=== PATIENT | male | born 1950 | race Caucasian/White ===

== ENCOUNTER → 2020-09-30 12:04 | Outpatient (CLI) | payer MEDICARE, BC, SELFPAY ==
--- NOTE | 2020-09-30 12:09 | DI.MRI.S_ITS ---
PROCEDURE: MR LUMBAR SPINE WO CON INDICATIONS: Radiculopathy, lumbar region TECHNIQUE: Noncontrast sagittal T1 spin echo and T2 fast echo, sagittal STIR, axial T1 and T2 fast spin echo through the lumbar spine. In cases with scoliosis, additional coronal T2 fast spin echo may be performed. COMPARISON: None. FINDINGS: Image quality: This examination is limited by involuntary motion artifact. Alignment and Curvature: There is normal bony alignment. Bone Marrow: Marrow is of normal overall signal. No acute vertebral body compression fractures. Spinal Cord: Conus medullaris terminates at the L1 level. Visualized cord demonstrates normal signal and size. Paraspinous Soft Tissues: No paravertebral masses. T12-L1: Normal appearance. L1-L2: No significant abnormality is seen. L2-L3: The disc height and disc signal are relatively well preserved. Mild disc bulge is seen, with a mild central disc protrusion. Moderate facet joint hypertrophy is seen. Minimal central canal narrowing is seen. L3-L4: Moderate loss of disc height is seen. Loss of disc signal is seen. Moderate disc bulge is seen, with a central disc protrusion. There is a focal annular fissure seen posteriorly. There is moderate right-sided and moderate to severe left-sided neural foraminal narrowing seen. There is a degree of compression seen upon the exiting left L3 nerve root. Mild central canal narrowing is seen. L4-L5: There is at least moderate loss of disc height and disc signal seen. Moderate disc bulge is seen, which is eccentric to the right. Reactive marrow endplate changes are seen, which demonstrate mixed T1 weighted and T2-weighted signal, and are attributed to a combination of edema and fatty metaplasia (Modic type I and Modic type II changes). Moderate facet joint hypertrophy is seen. Associated hypertrophy of the ligamentum flavum can be seen. There is moderate to severe bilateral neural foraminal narrowing seen, right worse than left. There is a degree of compression seen upon the exiting nerve roots. Moderate central canal narrowing is seen. L5-S1: Moderate loss of disc height is seen. Loss of disc signal is seen. Moderate generalized disc bulge is seen. Moderate facet joint hypertrophy is seen. There is moderate to severe bilateral neural foraminal narrowing seen. There is a degree of compression seen upon the exiting nerve roots. Minimal central canal narrowing is seen. IMPRESSION: Multiple levels of lumbar spine degenerative change are seen, which are worst inferiorly. Dictated by: Emory Oneill M.D. on 09/30/2020 at 13:46 Approved by: Emory Oneill M.D. on 09/30/2020 at 13:50
== END ==
PROVIDERS: PCP Family Medicine; Referring Provider Family Medicine; Visit Provider Family Medicine
DX: M54.16 Radiculopathy, lumbar region (principal); M51.37 Other intervertebral disc degeneration, lumbosacral region; M48.07 Spinal stenosis, lumbosacral region
CPT/HCPCS: 72148

== ENCOUNTER 2021-07-28 10:30 | Day surgery (SDC) | payer MEDICARE, BC, SELFPAY ==
--- NOTE | 2021-07-28 | PATH_ITS ---
[facility] Accession Number: [id number] . 01 Material submitted: . colon - ASCENDING COLON . 02 Diagnosis: Ascending Colon: Tubular adenoma. COUNTS INCLUDE 234 BEDS AT THE [facility] 07/30/2021 1557 Local . 02 Electronically signed: . Hillary Hinton MD, Pathologist NPI- [id number] . 01 Gross description: . ASCENDING COLON: Received in formalin is 1 fragment(s) of chen, soft tissue measuring 0.3 x 0.2 x 0.2 cm submitted entirely in 1 cassette(s) /DANIEL 07/30/2021 0053 Local . 02 Pathologist provided ICD-10: K63.5, Z86.010, Z01.812, Z20.822 . 02 CPT . 874786 Specimen Comment: A courtesy copy of this report has been sent to [phone] Performed at: 01 [facility] [address] [facility], [place], [place] [id number] MD Santiago Medrano MD Phone: [phone] Performed at: 02 [facility] [address] [place], [place] [id number] MD Susan Barboza MD Phone: [phone]
[2021-07-28 10:08] LABS: COVID19 -Nasal RAPID Negative (Negative)
[2021-07-28 10:44] VITALS: BP 133/66; PULSE 64; RESP 16; TEMP 36.4; O2SAT 100; BMI 23.7
[2021-07-28 11:07] VITALS: BMI 23.7
[2021-07-28] MEDS: LACTATED RINGERS 1,000 ML 200 ML IV (11:11)
--- NOTE | 2021-07-28 11:53 | PM.HP.1 ---
History of Present Illness History of Present Illness Date Patient Seen: 07/28/21 Time Patient Seen: 11:53 Chief complaint: DX COLONOSCOPY Narrative: The patient presents for colorectal screening. He had a previous colonoscopy 5 years ago which was significant for benign polyps. No personal or family history of colon cancer. On further history denies any recent gastrointestinal symptoms. No nausea, vomiting, abdominal pain, loss of appetite, unexplained weight loss, change in bowel habits, diarrhea, constipation, melena, hematochezia, or bright red blood per rectum. Patient History Family & Social History Social History: household members other Tobacco & Substance use: Smoking Status Never smoker alcohol intake frequency a few times a week Substance Use Type does not use Meds Home Medications and Allergies Home Medications Medication Instructions Recorded Confirmed Type sodium,potassium,mag sulfates 17.5 See Rx Instructions PO .COMPLEX 07/02/21 Rx gram-3.13 gram-1.6 gram oral soln #354 ml (Suprep Bowel Prep Kit) Allergies Allergy/AdvReac Type Severity Reaction Status Date / Time No Known Drug Allergies Allergy Verified 07/28/21 10:38 Exam Vital Signs (past 8 hours): - 07/28/21 10:44 Temperature 97.6 F Pulse Rate 64 Respiratory Rate 16 Blood Pressure 133/66 Pulse Oximetry 100 Oxygen Delivery Method Room Air Narrative Exam Narrative: GENERAL: Adult male in no apparent distress HEENT: No scleral icterus CV: Regular rate, no peripheral edema LUNGS: No increased work of breathing. Patient speaks in full sentences without oxygen support. ABDOMEN: Soft, non-tender, non-distended NEURO: Nonfocal, normal strength throughout, SKIN: Warm and dry Objective Labs Labs: Laboratory Results - last 24 hr 07/28/21 09:32 SARS-CoV-2 (PCR) Negative Assessment & Plan Assessment and plan (1) Screening for colon cancer: Status: Acute Assessment & Plan narrative: The patient requires colorectal screening and colonoscopy is recommended. Technical details were discussed. Risks, benefits, alternatives explained. Risks including but not limited to myocardial infarction, aspiration, bleeding, pain, missed lesion, incomplete examination, need for further radiographic studies, colonic perforation, and need for major abdominal surgery were discussed. All questions were answered to their satisfaction, and they are in agreement with this plan. Time Spent With Patient Critical Care time: I spent a total of [] minutes of critical care time on this patient's care today; this time is exclusive of procedural time.
[2021-07-28] MEDS: MIDAZOLAM 5 MG/5 ML VIAL IV (12:01)
[2021-07-28] MEDS: fentaNYL 250 MCG/5 ML INJ IV (12:01)
--- NOTE | 2021-07-28 12:33 | PM.OP.COLON ---
Operative Date/Time/Diagnoses Date of procedure: 07/28/21 Time of procedure: 12:33 Pre-op diagnosis: Personal history of colonic polyps Post-op diagnosis: same Procedure & Clinicians Study performed: Colonoscopy Same procedure as scheduled: Yes Indications: Personal history of colonic polyps Surgeon: Shahid Guzman Procedure Notes Procedure in detail: Medications: Conscious sedation using midazolam and fentanyl The history and physical was performed/updated and the patient is ASA class is 1. The procedure was discussed in detail with the patient. Potential risks complications including infection, bleeding, missed diagnosis, perforation, need for surgery, and were explained. Their questions were answered and informed consent was obtained. Patient was brought to the procedure room and placed standard monitoring equipment. The patient's vital signs were monitored continuously throughout the entire procedure. Prior to starting time-out was performed. The patient was placed in the left lateral recumbent position. Procedural sedation was administered. Examination began with a thorough inspection of the perianal area there was no evidence of fissures, fistulae, external hemorrhoids or cutaneous malignancy. The colonoscopy scope was then placed into the anal canal and was advanced to the cecum, which was identified by the ileocecal valve, the appendiceal orifice and the confluence of the taenia. The scope was then slowly withdrawn examining colon thoroughly in all directions, irrigating it of any residual stool. FINDINGS 1. 5 mm polyp in the ascending colon removed with biopsy forceps 2. Tortuous colon The patient tolerated the procedure well. They will be discharged once criteria are met. The prep was of good/excellent quality. The withdrawl time was 6 minutes. The sedation time was 35 minutes. Specimen(s): other (Ascending colon) Complications: none Impression: Colonic polyp Post-procedure Recommendations: Will call with biopsy results Disposition: same day surgery
[2021-07-28 12:40] VITALS: BP 135/90; PULSE 60; RESP 15; TEMP 36.7; O2SAT 95
[2021-07-28 12:55] VITALS: BP 120/93; PULSE 61; RESP 15; O2SAT 94
--- NOTE | 2021-07-28 12:55 | SUR.PHASEI ---
Per Dr Guzman- Win for pt to take taxi to the [facility]. Pt's will pick him up on the other side.
[2021-07-28 13:00] VITALS: BP 131/87; PULSE 60; RESP 15; O2SAT 99
--- NOTE | 2021-07-28 13:29 | SUR.PHASEII ---
Per Dr Guzman, patient okay to take taxi to [place] to get home. Patient awake, alert, ambulatory on discharge. No distress. Vss.
== END 2021-07-28 13:30 | disposition home or self-care (01) ==
PROVIDERS: Surgery; PCP Family Medicine; Referring Provider Surgery; Visit Provider Surgery
PROC: 0DJD8ZZ Inspection of Lower Intestinal Tract, Via Natural or Artificial Opening Endoscopic (ICD-10-PCS; CPT 45378; principal; 2021-07-28 11:30)
DX: Z12.11 Encounter for screening for malignant neoplasm of colon (principal); Z86.010 Personal history of colon polyps; Z20.822 Contact with and (suspected) exposure to COVID-19; D12.2 Benign neoplasm of ascending colon
CPT/HCPCS: 45380; 87635; 99152; 99153; C9803; J2250; J3010